=== PATIENT | female | born 1975 | race Caucasian/White ===

== ENCOUNTER 2019-04-30 10:50 | Emergency (ER) | payer MEDICAID, OTHER ==
[2019-04-30] MEDS: ACETAMINOPHEN 500 MG TAB PO (11:23)
== END 2019-04-30 11:39 | disposition home or self-care (01) ==
LOC: FTE 10:50
DX: O99.512 Diseases of the respiratory system complicating pregnancy, second trimester (principal); J06.9 Acute upper respiratory infection, unspecified; Z3A.16 16 weeks gestation of pregnancy
CPT/HCPCS: 99282; Z7610